=== PATIENT | female | born 1980 | race Caucasian/White ===

== ENCOUNTER → 2020-06-29 | Outpatient (CLI) | payer BC ==
[2020-06-29 17:55] LABS: ALBUMIN 4.1 g/dL (3.5-5.0); POTASSIUM 4.1 mmol/L (3.5-5.1); SODIUM 140 mmol/L (136-145)
[2020-06-29 17:57] LABS: CALCIUM 9.1 mg/dL (8.3-10.5)
[2020-06-29 17:58] LABS: GLUCOSE 97 mg/dL (65-105); TOTAL PROTEIN 7.7 g/dL (6.4-8.3)
[2020-06-29 17:59] LABS: CARBON DIOXIDE 23 mmol/L (22-29)
[2020-06-29 18:00] LABS: TOTAL BILIRUBIN 0.3 mg/dL (0.2-1.2)
[2020-06-29 18:03] LABS: AST-SGOT 20 U/L (5-34)
[2020-06-29 18:04] LABS: ALT/SGPT 38 U/L (0-55)
[2020-06-29 18:07] LABS: HEMOGLOBIN 13.1 g/dL (12.5-16.0); MEAN PLATELET VOLUME 9.6 fl (7.4-10.4); RED BLOOD COUNT 4.27 M/mm3 (4.10-5.30); RED CELL DISTRIBUTION WIDTH 12.5 % (11.5-14.5); WHITE BLOOD COUNT 11.5 K/mm3 (4.8-10.8)
[2020-06-29 18:28] LABS: TROPONIN-I < 0.03 ng/mL (<0.030)
== END ==
LOC: AMSURD 17:21
PROVIDERS: Nurse Practitioner
DX: R00.2 Palpitations (principal)

== ENCOUNTER → 2020-06-30 | Outpatient (CLI) | payer BC | LOC: AMSURD 15:19 | DX: R00.2 Palpitations (principal) ==